=== PATIENT | female | born 1935 | race Caucasian/White ===

== ENCOUNTER 2016-12-25 11:07 | Emergency (ER) | payer OTHER ==
[~2016-12-25] VITALS: Ht 157.5 cm; Wt 107.3 kg
[~2016-12-25 11:07] MED LIST: ALDACTONE50 MG PO; ALEVE220 MG PO; AMARYL2 MG PO; ASPIRIN EC325 MG PO; AVAPRO300 MG PO; BENADRYL25 MG PO; BIOTIN 5000MCG PO; BIOTIN800 MCG PO; COZAAR50 MG PO; FERROUS SULFAT325 MG PO; KLOR-CON M1010 MEQ PO; LANTUS (UNITS)1 UNIT SC; LANTUS 3 M100 UNITS1 SC; LASIX40 MG PO; NOVOLOG (UNITS1 UNIT SC; NOVOLOG PE100 UNITS/ SC; OMEPRAZOLE40 M1 PO; OXYCODONE HCL5 MG PO; PLAVIX75 MG PO; SENNA PLUS TAB1 EACH PO; ULTRAM50 MG PO; VITAMIN B-12500 MC5 SL; VITAMIN B12-FO1 EACH PO; VITAMIN C500 M1 PO; VITAMIN D31000 UNIT PO; WOMENS MULTIPL1 EACH PO; WYGESIC,DARV1 TABLET PO
[2016-12-25 12:03] LABS: POINT-OF-CARE METER ID UU14100415
[2016-12-25 12:10] LABS: EOSINOPHIL (%) 0.5 % (0-5); HEMATOCRIT 36.9 % (36.0-46.0); IMMATURE GRANULOCYTE (%) 0.3 % (0.0-0.7); INSTRUMENT ABS NEUTROPHIL CT 4.6 K/uL; LYMPHOCYTE COUNT 1.9 K/uL (1.0-2.8); MCH 33.4 PG (29.0-34.0); MCHC 33.9 G/DL (30.0-36.0); MCV 98.7 FL (83-99); MEAN PLAT.VOLUME 10.3 uM^3 (9.5-12.4); MONOCYTE COUNT 0.9 K/uL (0-0.8); NEUTROPHIL (%) 61.6 % (45-76); NEUTROPHIL COUNT 4.6 K/uL (1.8-6.4); PLATELET COUNT 173 K/uL (156-360); RBC DIS.WIDTH-SD 51.2 % (39-53); RED BLOOD COUNT 3.74 M/uL (3.80-5.20); WHITE BLOOD COUNT 7.5 K/uL (4.1-10.2)
[2016-12-25 12:22] LABS: CHLORIDE 106 mEq/L (99-109); SODIUM 136 mEq/L (136-147)
[2016-12-25 12:25] LABS: GLUCOSE 158 mg/dL (70-99)
[2016-12-25 12:26] LABS: ANION GAP 10 MEQ/L (2-14)
[2016-12-25 12:27] LABS: TOTAL BILIRUBIN 2.2 mg/dL (0.0-1.0)
[2016-12-25 12:28] LABS: ALKALINE PHOSPHATASE 129 IU/L (3-129); GFR ESTIMATE (CALCULATED) 39 mL/min/
[2016-12-25 12:29] LABS: UREA NITROGEN (BUN) 33 mg/dL (9-23)
[2016-12-25 12:31] LABS: POTASSIUM 6.1 mEq/L (3.7-5.4)
[2016-12-25 12:32] LABS: LIPASE 240 U/L (1.0-51.0)
[2016-12-25 13:45] LABS: ADD MIUA? NO; BILIRUBIN NEGATIVE; BLOOD NEGATIVE; COLOR YELLOW ((YELLOW)); GLUCOSE (STRIP) NEGATIVE; KETONES NEGATIVE; LEUKOCYTES NEGATIVE; NITRITE NEGATIVE; PROTEIN (STRIP) 30; SPECIFIC GRAVITY 1.011 (1.000-1.030); UCUL ADDED? NO; UROBILINOGEN 0.2 MG/DL (0.2-1.0)
[2016-12-25 15:31] VITALS: BP 125/66
== END 2016-12-25 15:32 | disposition home or self-care (01) ==
LOC: EME 11:07
PROVIDERS: Emergency Medicine
DX: E87.5 Hyperkalemia (principal); R74.8 Abnormal levels of other serum enzymes; R11.10 Vomiting, unspecified; E11.8 Type 2 diabetes mellitus with unspecified complications; Z79.4 Long term (current) use of insulin; Z87.891 Personal history of nicotine dependence
CPT/HCPCS: 74022; 80053; 81003; 82948; 83690; 84132 91; 85025; 99281; 99285; J7030

== ENCOUNTER → 2017-10-30 | Outpatient (CLI) | payer OTHER ==
[2017-10-30 15:03] LABS: TYPE OF FLUID PARACENTESIS
[2017-10-30 15:43] LABS: APPEARANCE SL. HAZY-YELLOW; BODY FLUID EOSINOPHILS 0 % (0-25); BODY FLUID RBC'S < 1000 /MM^3 (0-100); BODY FLUID WBC'S 292 /MM^3 (0-500); MONONUCLEAR WBC'S 64 %; POLYNUCLEAR WBC'S 36 % (0-25)
[2017-10-30 15:54] LABS: BODY FLUID GLUCOSE 197 MG/DL; BODY FLUID LDH 32 IU/L; BODY FLUID PROTEIN < 3.0 G/DL
[2017-11-04 01:31] LABS: BODY FLUID PH 8.1 (())
== END | disposition home or self-care (01) ==
LOC: RAD 13:28
PROVIDERS: Internal Medicine Gastroenterology
PROC: 0W9G3ZZ Drainage of Peritoneal Cavity, Percutaneous Approach (ICD-10-PCS; principal; 2017-10-30)
DX: K74.60 Unspecified cirrhosis of liver (principal); R18.8 Other ascites; K21.9 Gastro-esophageal reflux disease without esophagitis; I85.00 Esophageal varices without bleeding
CPT/HCPCS: 49083; 82945; 83615 91; 83986 90; 84157; 87070; 87075; 87205; 88108; 88312; 89051

== ENCOUNTER → 2018-04-09 | Outpatient (CLI) | payer OTHER ==
[~2018-04-09] MED LIST changes: +ALDACTONE100 MG PO; +BASAGLAR K100 UNIT/1 SC
[2018-04-09 09:06] LABS: TYPE OF FLUID PARACENTESIS
[2018-04-09 09:19] LABS: APPEARANCE SLIGHTLY CLOUDY; BODY FLUID RBC'S < 1000 /MM^3 (0-100); BODY FLUID WBC'S 207 /MM^3 (0-500)
[2018-04-09 10:07] LABS: BODY FLUID PROTEIN < 3.0 G/DL
[2018-04-09 10:12] LABS: BODY FLUID EOSINOPHILS 3 % (0-25); MONONUCLEAR WBC'S 56 %; POLYNUCLEAR WBC'S 41 % (0-25)
== END | disposition home or self-care (01) ==
LOC: RAD 08:24
PROVIDERS: Internal Medicine Gastroenterology
PROC: 0W9G3ZZ Drainage of Peritoneal Cavity, Percutaneous Approach (ICD-10-PCS; principal; 2018-04-09)
DX: R18.8 Other ascites (principal)
CPT/HCPCS: 49083; 84157; 87070; 87205; 88108; 88305; 89051

== ENCOUNTER → 2018-04-16 | Outpatient (CLI) | payer OTHER | END | disposition home or self-care (01) | LOC: RAD 14:19 | PROC: 0HQ7XZZ Repair Abdomen Skin, External Approach (ICD-10-PCS; principal; 2018-04-16) | DX: R18.8 Other ascites (principal) ==